=== PATIENT | male | born 1960 | race Caucasian/White ===

== ENCOUNTER 2023-11-20 23:13 | Emergency (ER) | payer BC, SELFPAY ==
[2023-11-20 23:22] VITALS: BP 171/100
[2023-11-20 23:50] VITALS: BP 144/93
[2023-11-20 23:59] VITALS: BMI 30.4
[2023-11-21] VITALS: BP 141/91
[2023-11-21 00:34] LABS: % Basophils 0.8 % (0-2); % Eosinophils 8.3 % (0-6); % Immature Granulocytes 0.8 % (0-0.5); % Lymphocytes 42.3 % (20.5-51.1); % Monocytes 8.8 % (1.7-9.3); Absolute Eosinophils 0.4 10^3/uL (0-0.7); Absolute Lymphocytes 2.2 10^3/uL (1.2-3.4); Absolute Monocytes 0.5 10^3/uL (0.1-0.6); Hematocrit 41.8 % (39.0-52.0); Hemoglobin 14.2 g/dL (13.0-18.0); Mean Corpuscular Volume 88.4 fL (80.0-94.0); Mean Platelet Volume 8.9 fL (7.4-10.4); Nucleated Red Blood Cells % 0 % (-); Platelet Count 268 10^3/uL (130-400); Red Blood Cell Count 4.73 10^6/uL (4.70-6.10); Red Cell Dist. Width 12.2 % (11.5-14.5); White Blood Cell Count 5.2 10^3/uL (4.8-10.8)
[2023-11-21 00:36] LABS: ALT (SGPT) 20 U/L (0-50); AST (SGOT) 24 U/L (17-59); Albumin 3.6 g/dl (3.5-5.0); Alkaline Phosphatase 82 U/L (38-126); Blood Urea Nitrogen 18 mg/dl (9-20); Calcium 9.3 mg/dl (8.4-10.2); Carbon Dioxide 31 mmol/L (22-30); Chloride 100 mmol/L (98-107); Estimated Creatinine Clearance 93 ml/min; Glucose 99 mg/dl (70-99); Potassium 3.8 mmol/L (3.5-5.1); Sodium 138 mmol/L (135-145); Total Bilirubin 0.6 mg/dl (0.2-1.3); Total Protein 6.4 g/dl (6.3-8.2); eGFR > 60.00
--- NOTE | 2023-11-21 00:41 | ED.GENMED ---
History of Present Illness
General
Chief Complaint: Chest Pain
Source: patient
Exam Limitations: none
Time Seen by Provider: 11/20/23 23:48
Travel History
Have you had any contact with someone who has COVID-19?: No
Do you have any symptoms of coronavirus? Fever > 100 degrees, chills, cough, shortness of breath, sore throat, loss of taste or smell, muscle aches, or headache?: No
History of Present Illness
History of Present Illness:
63-year-old male complaining of left-sided dull chest discomfort started about 130 this afternoon and lasted till 4. Similar episode yesterday. Nonexertional. Nonpleuritic. Then this evening when he went to bed he developed right-sided chest
pain with some radiation to the back. No further episodes of left-sided chest pain. No radiation to the arm or jaw. Patient exercises daily lifting weights and riding a bike and lasted this yesterday without issues. No cardiac risk factors.
Currently only complaining of minimal right-sided anterior localized chest
Past History
Past History
ED Past Medical History: None
Social History
Tobacco: Non-smoker
Alcohol: None
Drug: None
Personal:
Living: with family
Employment: Employed
Family History
Family History: Negative Diabetes, Hypertension, Early CAD, Asthma or Sudden
Review of Systems
Review of Systems
All Other Systems: Not applicable
Constitutional: Denies fever
Respiratory: Reports no symptoms; Denies cough
ABD/GI: Reports no symptoms
Phy Exam
Physical Exam
Physical Exam:
GENERAL: Alert and oriented in no apparent distress
EYE: Orbits normal.
NECK: Supple, no significant adenopathy.
ENT: Pharynx without erythema
CARDIAC: Regular rate and rhythm without any obvious murmurs.
LUNGS: Clear breath sounds,normal
ABDOMEN: Soft, without focal tenderness or distention
NEUROLOGICAL: Alert and oriented , grossly non-focal
SKIN: Warm and dry, no rash or lesion, no discoloration, skin intact.
MUSCULOSKELETAL: No edema,no deformity.Good color
PSYCH: Normal and appropriate interaction.
Scores
Heart Score for Chest Pain Patients
STEMI patient?: No
History: Slightly or Non-Suspicious
ECG: Normal
Age: >45 - <65 years
Risk Factors: No Risk Factors
Troponin: </= Normal Limit
Heart Score for Chest Pain Patients: 1
Heart Score Risk: 2.5% MACE over next 6 weeks
Course
Orders/Labs/Results
Orders:
Orders
11/20/23 23:14
EKG [Electrocardiogram (*1)] Urgent
Reason for Study: Chest Pain
EKG- Treatment ONCE
11/20/23 23:58
Cardiac Monitoring- Treatment ONCE
IV Insert/Care/Rem.- Treatment PRN
Complete Blood Count/With Diff Urgent
Comprehensive Metabolic Panel Urgent
NT-proBNP Urgent
Troponin I Urgent
O2 Therapy [RESP] Urgent
Titrate/Wean O2 to maintain O2 sat greater than (%): 93
Special Instructions: TO MAINTAIN CONTINUOUS O2 SATS >/= 93%
Pulse Ox/cont/shift [RESP] Urgent
Quantity: 1
Special Instructions: continuous pulse ox
11/21/23 00:30
CT Chest Angio W/wo Iv Contras Urgent
Comment:
Reason For Exam: cp to back
11/21/23 01:53
EKG- Treatment ONCE
11/21/23 02:24
Pantoprazole [Protonix IV] 40 mg IV NOW STA
11/21/23 02:56
Troponin I Urgent
11/21/23 03:00
Electrocardiogram (*1) Stat
Reason for Study: Other
Other Reason for Exam: chest pain
Abnormal Lab Results
11/21/23
00:06
Immature Gran % 0.8 H %
(0-0.5)
Neutrophils % 39.0 L %
(42.2-75.2)
Eosinophils % 8.3 H %
(0-6)
Carbon Dioxide 31 H mmol/L
(22-30)
11/21/23 00:06
11/21/23 00:06
Vital Signs
Initial and Last Documented VS:
Initial Vital Signs
Temp Pulse Resp BP Pulse Ox
98.0 F 85 16 171/100 100
11/20/23 23:22 11/20/23 23:22 11/20/23 23:22 11/20/23 23:22 11/20/23 23:22
Last Documented Vital Signs
Temp Pulse Resp BP Pulse Ox
98.0 F 88 19 142/89 99
11/20/23 23:22 11/21/23 03:54 11/21/23 03:54 11/21/23 03:54 11/21/23 03:54
MDM/Problems Addressed
Differential Diagnosis Includes:
Relatively atypical cardiac pain with nonexertional component. No cardiac risk factors. Workup in progress. EKG normal. However with some of the right-sided chest pain radiating to the back dissection will also be ruled out.
*Pulse Oximetry
Patient hypoxic: no
*EKG
Interpreted by ED Provider?: Yes
Interpretation: normal
Comparison EKG: no comparison EKG present
Heart Rate: 82
Rate: normal
Rhythm: sinus
[place]: normal axis
Interval: normal interval
QRS Pattern: normal QRS
Ischemia: no ischemia
*Critical Care Note
Total Time (30-74mins, 75-104mins- exclusive of procedures): Not Applicable
Update Note
Update Note:
Patient has remained medically stable and nontoxic. Appears in no distress. Initial cardiac testing all negative after relatively prolonged chest pain earlier today and the day before. Along with no cardiac risk factors and frequent exercise
recently without issues. However for completeness would warrant cardiac follow-up.
Of note gastroenterology was also contacted and given the patient's information for close follow-up
ED Attending Note
-
Portions of this chart may have been created with voice recognition software.� Occasional wrong word or��sound alike� substitutions may have occurred due to the inherent limitations of voice recognition software.
Discharge Plan
Departure
Patient Disposition: Home (Routine Discharge)
Date of Disposition: 11/21/23
Time of Disposition: 03:35
Patient with high blood pressure during this ER visit?: No
Condition: Good
Covid-19: Not Applicable
Discharge Problem:
Chest pain
Instructions: Esophagitis, Chest Pain DCA Follow Up
Prescriptions:
New
pantoprazole [Protonix] [address] for susp in packet
40 mg PO DAILY 28 Days Qty: 30 0RF
Referrals:
Aric New MD [Family Provider] - Follow up in 2-3 days
Cristiane Patricia MD [Active] - Next open appointment
Activity Restrictions/Additional Instructions:
Call the GI physicians first thing Thursday morning for close follow-up
Your prescription was sent to your pharmacy
Interventions
Interventions:
*Risk Screen - Suicide Last Done: 11/20/23 23:50
*General Assessment Last Done: 11/20/23 23:50
*Neglect/Abuse Screening Last Done: 11/20/23 23:50
ED- Fall Risk Assessment Last Done: 11/20/23 23:50
*ED COVID-19 Vaccine History Last Done: 11/20/23 23:50
*Nursing Disposition Last Done: 11/21/23 04:00
ED- Cardiac Assessment Last Done: 11/20/23 23:50
Discharge Date and Time
Discharge Date/Time: 11/21/23 04:00
[2023-11-21 00:46] LABS: NT-proBNP 25.5 pg/ml; Troponin I < 0.012 ng/ml
[2023-11-21 01:00] VITALS: BP 138/83
[2023-11-21 01:53] VITALS: BP 142/92
[2023-11-21 02:00] VITALS: BP 142/91
[2023-11-21 03:00] VITALS: BP 137/89
[2023-11-21] MEDS: PROTONIX IV 40 MG IV (03:01)
[2023-11-21 03:31] LABS: Troponin I < 0.012 ng/ml
[2023-11-21 03:54] VITALS: BP 142/89
--- NOTE | 2023-11-30 09:59 | OID.L.PAT ---
Pulmonary Nodule Pat Letter
- -
11/30/23
LIONEL SUBRAMANIAN
[id number]
[place], [place] [address]
Nayelir LIONEL,
A pulmonary nodule was seen on an imaging study done by [facility]. This was reviewed by the [facility] Pulmonary Nodule Advisory Board and the following recommendation was made:
Recommendation: Follow up Chest CT in 6 months
If you have any questions, please do not hesitate to contact your primary care physician. If you are in need of a Physician, you can go to [email or web address] and click on 'Find a Provider'. Type 'Family Medicine' in the search.
Oncology Nurse Navigator
[facility]
[phone]
--- NOTE | 2023-11-30 09:59 | OID.L.REC ---
Pulmonary Nodule Follow Up
- Recommendation
11/30/23
Pulmonary Nodule Review Recommendations
Your patient, LIONEL SUBRAMANIAN, had a pulmonary nodule seen on a CT Chest Angio imaging study done on 11/21/23 in the [facility].
This was reviewed by the [facility] Pulmonary Nodule Advisory Board and the following recommendation was made:
Recommendation: Follow up Chest CT in 6 months
If you have any questions please do not hesitate to contact us.
Sincerely,
Oncology Nurse Navigator
[facility]
[phone]
== END 2023-11-21 04:00 | disposition home or self-care (01) ==
LOC: EMR 23:13
PROVIDERS: Emergency Medicine; EMERGENCY PHYSICIAN Emergency Medicine; FAMILY PHYSICIAN Family Medicine
DX: R07.89 Other chest pain (principal)
CPT/HCPCS: 99285; 96374; 71275; 80053; 83880; 84484; 85025; 93005; Q9967